=== PATIENT | female | born 1980 | race Caucasian/White ===

== ENCOUNTER 2021-04-18 15:55 | Emergency (ER) | payer OTHER ==
[~2021-04-18] VITALS: Ht 170.2 cm; Wt 86.2 kg
[2021-04-18 15:55] VITALS: BP 146/91
[2021-04-18] MEDS ORDERED: PROMETH-CODEIN 65 ML PO (17:39)
[2021-04-18] MEDS ORDERED: PREDNISONE 20 M20 MG PO (17:39)
== END 2021-04-18 17:39 | disposition home or self-care (01) ==
LOC: ER 15:55
DX: J98.8 Other specified respiratory disorders (principal); R05 Cough; Z20.822 Contact with and (suspected) exposure to COVID-19

== ENCOUNTER → 2021-05-08 | Outpatient (CLI) | payer OTHER ==
[~2021-05-08] MED LIST: PREDNISONE 20 M20 MG PO; PROMETH-CODEIN 65 ML PO
[2021-05-08 15:12] LABS: ABSOLUTE NEUTROPHILS 3.1 thou/uL (1.4-8.2); BASOPHILS 0.7 % (0.0-2.0); EOSINOPHILS 0.9 % (0.0-3.0); HEMATOCRIT 39.7 % (37.0-47.0); HEMOGLOBIN 13.6 gm/dL (12.0-15.0); MCH 30.4 pg (26.0-34.0); MCHC 34.3 g/dL (28.0-37.0); MCV 88.5 fL (80.0-100.0); MONOCYTES 9.1 % (1.0-8.0); PLATELET COUNT 287 thou/uL (150-400); POLYS 55.3 % (36.0-66.0); RBC 4.48 mil/uL (4.20-5.00); RDW 12.6 % (10.5-14.5); WBC 5.6 thou/uL (4.0-11.0)
[2021-05-08 15:13] LABS: URINE BILIRUBIN NEGATIVE (Negative); URINE BLOOD NEGATIVE (Negative); URINE CLARITY CLEAR; URINE COLOR YELLOW; URINE GLUCOSE-RANDOM* NEGATIVE (Negative); URINE KETONES NEGATIVE (Negative); URINE LEUKOCYTES-REFLEX TRACE (Negative); URINE PROTEIN (DIPSTICK) NEGATIVE (Negative); URINE SPECIFIC GRAVITY 1.025 (1.005-1.035); URINE UROBILINOGEN 0.2 E.U./dl (0.2-1.0)
[2021-05-08 15:19] LABS: URINE NITRITE-REFLEX POSITIVE (Negative)
[2021-05-08 15:32] LABS: ALBUMIN 3.8 g/dL (3.4-5.0); ANION GAP 8 mmol/L (7-16); BUN 17 mg/dL (7-18); CHLORIDE 106 mmol/L (98-107); CHOLESTEROL 176 mg/dL (<200); CO2 28 mmol/L (21-32); GLUCOSE 87 mg/dL (74-106); HDL CHOLESTEROL 68 mg/dL (>40); LDL CHOLESTEROL 89 mg/dL (<100); POTASSIUM 4.2 mmol/L (3.5-5.1); SGOT 14 U/L (15-37); SGPT 31 U/L (30-65); SODIUM 142 mmol/L (136-145); TC:HDL 2.6 Ratio (Not establshd); TOTAL BILIRUBIN 0.3 mg/dL (0.2-1.0); TOTAL PROTEIN 7.7 g/dL (6.4-8.2); TRIGLYCERIDE 96 mg/dL (<150); VLDL 19 mg/dL (<40)
[2021-05-08 15:33] LABS: CASTS None Seen /LPF (None Seen); SQUAMOUS 4-10 Moderate /LPF (0-3)
[2021-05-08 15:34] LABS: BACTERIA-REFLEX >30 Many /HPF (None Seen); CRYSTALS None Seen /LPF (None Seen); URINE RBC None Seen /HPF (NONE SEEN); URINE WBC-REFLEX 6-15 Few /HPF (0-5)
== END ==
LOC: LAB 14:01
PROVIDERS: ATTEND Family Medicine
DX: Z00.00 Encounter for general adult medical examination without abnormal findings (principal)